=== PATIENT | female | born 1990 | race Caucasian/White ===

== ENCOUNTER 2022-11-30 09:15 | Emergency (ER) | payer OTHER ==
[~2022-11-30] VITALS: Ht 170.2 cm; Wt 71.7 kg
--- NOTE | 2022-11-30 09:50 | NUR ---
PT WALKED INTO ER C/O VAGINAL BLEED 1 HOUR AGO. PT STATES "I AM 5 WEEKS AND THIS IS MY 2ND ." PT DENIES ANY ABDOMINAL PAIN, CP, OR SOB. PT AMBULATED TO BED WITH STEADY GAIT, CONNECTED TO MONITOR. AWAITING MD FOR EVAL.
--- NOTE | 2022-11-30 10:13 | NUR ---
[employer] ARCHITECT AT BEDSIDE FOR BLOOD DRAW.
--- NOTE | 2022-11-30 10:14 | NUR ---
CALLED ULTRASOUND EXTENSION, NO ANSWER.
[2022-11-30 10:27] LABS: BASOPHILS % (AUTO) 0.5 % (0.0-2.0); EOSINOPHILS % (AUTO) 1.8 % (0.0-6.0); HEMATOCRIT 41 % (33-45); HEMOGLOBIN 13.9 g/dL (11.5-14.8); LYMPHOCYTES % (AUTO) 15.1 % (20.0-44.0); MEAN CORPUSCULAR HGB CONC 34 g/dl (31.0-36.0); MEAN CORPUSCULAR VOLUME 93 fL (82-100); MONOCYTES # (AUTO) 0.4 K/uL (0.1-1.30); NEUTROPHILS # (AUTO) 5.2 K/uL (1.8-8.9); NEUTROPHILS % (AUTO) 76.6 % (43.0-81.0); PLATELET COUNT (AUTO) 207 K/uL (150-450); RED BLOOD CELL COUNT(AUTO) 4.42 MIL/uL (4.0-5.2); WHITE BLOOD COUNT (AUTO) 6.8 K/uL (4.3-11.0)
--- NOTE | 2022-11-30 10:31 | NUR ---
US AT BEDSIDE
[2022-11-30 10:42] LABS: CALCIUM, SERUM 9.5 mg/dL (8.5-10.1); CREATININE 0.9 mg/dL (0.6-1.3); POTASSIUM 3.8 mmol/L (3.5-5.1)
--- NOTE | 2022-11-30 10:43 | NUR ---
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
--- NOTE | 2022-11-30 13:15 | NUR ---
RHOGAM ADMINISTERED ORDERED. RIGHT GLUTEUS MAXUMUS, IM. PT TOLERATED WELL.
--- NOTE | 2022-11-30 13:22 | NUR ---
Patient discharged to home in stable condition. Written and verbal after care instructions given. Patient verbalizes understanding of instruction.
[2022-11-30 13:40] VITALS: BP 128/88
== END 2022-11-30 13:44 | disposition home or self-care (01) ==
LOC: ER 09:20
DX: O46.91 Antepartum hemorrhage, unspecified, first trimester (principal); Z3A.01 Less than 8 weeks gestation of pregnancy; Z88.8 Allergy status to other drugs, medicaments and biological substances
CPT/HCPCS: 99285; 76856; 96372; 85025; 80048; 36415; 85730; 84702; J2790